=== PATIENT | male | born 1960 | race Caucasian/White ===

== ENCOUNTER 2017-02-24 05:18 | Day surgery (SDC) | payer OTHER ==
[2017-02-13 09:41] VITALS: BMI 34.0
--- NOTE | 2017-02-13 10:13 | PAT Medication Instructions ---
Service Date Feb 13, 2017. Current Home Medication List Aspirin (Aspirin Ec), 81 MG PO QAM Lisinopril (Zestril), 10 MG PO QAM Medication Instructions For Your Scheduled Surgery - Hold the following medications the morning of surgery: Lisinopril (Zestril), 10 MG PO QAM - Take the following medications the morning of surgery with a sip of water OTHERWISE NOTHING TO EAT OR DRINK AFTER MIDNIGHT: Aspirin (Aspirin Ec), 81 MG, 2 tabs PO QAM If you have any questions please call us at [phone] or [phone] or [phone]
[2017-02-13 10:47] LABS: BASO % 0.4 %; BASO ABS # 0.02 K/uL (0-0.2); COMPLETE YES; HEMATOCRIT 45.5 % (42-52); IG% 0.2 %; LYMPH % 35.1 %; LYMPH ABS # 1.76 K/uL (1.2-3.4); MEAN CELL VOLUME 95.4 fL (80-100); MEAN CORPUSCULAR HEMOGLOBIN 33.3 pg (25-34); MEAN CORPUSCULAR HGB CONC 34.9 g/dl (32-36); MEAN PLATELET VOLUME 9.4 fL (7.4-10.4); MONO % 7.8 %; NEUT % 55.5 %; PLATELET COUNT 288 K/uL (130-400); RED BLOOD COUNT 4.77 M/uL (4.7-6.1); WHITE BLOOD COUNT 5.02 K/uL (4.8-10.8)
--- NOTE | 2017-02-13 10:52 | DIAGNOSTIC IMAGING REPORT ---
CHEST PREADMISSION(PA/LAT) CLINICAL HISTORY: PAT preoperative evaluation COMPARISON STUDY: 07/05/2013 FINDINGS: The bones soft tissues and hemidiaphragms are normal. The cardiomediastinal silhouette is normal. The lungs are clear. The pulmonary vasculature is normal. Bilateral stimulator electrodes overlying the low thoracic region IMPRESSION: No acute process Electronically signed by: Frederic Jamison M.D. 02/13/2017 10:50 AM Dictated Date/Time: 02/13/2017 10:49 AM
[2017-02-13 10:56] LABS: URINE APPEARANCE CLEAR (CLEAR); URINE BILIRUBIN NEG (NEG); URINE COLOR YELLOW; URINE EPITHELIAL CELL AUTO 0-5 /lpf (0-5); URINE NITRITE NEG (NEG); URINE PH 5.5 (4.5-7.5); URINE SPECIFIC GRAVITY 1.015 (1.000-1.030); UROBILINOGEN NEG (NEG)
[2017-02-13 11:01] LABS: MANUAL MICROSCOPIC REQUIRED? NO; REVIEW REQ? NO
[2017-02-13 12:35] LABS: BUN/CREATININE RATIO 11.7 (10-20); CALCIUM 9.3 mg/dl (8.5-10.1); CREATININE 1.1 mg/dl (0.60-1.40); POTASSIUM 4.4 mmol/L (3.5-5.1)
[~2017-02-24] VITALS: Ht 185.4 cm; Wt 118.7 kg
[~2017-02-24 05:18] MED LIST: ASPI81TA28 PO; CEFAZOLIN 2000 MG/60 ML D5W IV SCH; LISI-461 PO
[2017-02-24 05:48] VITALS: BP 150/87; PULSE 73; TEMP 36.8; O2SAT 97; Ht 185.4 cm; Wt 118.7 kg
[2017-02-24] MEDS ORDERED: LACTATED RINGER'S 1000ML 1,000 ML IV SCH (06:00)
[2017-02-24] MEDS ORDERED: ROCURONIUM BROMIDE 10 MG/ML 5 ML VIAL ONE (06:31)
[2017-02-24] MEDS ORDERED: PROPOFOL IV EMULSION 10 MG/ML 20 ML VIAL IV ONE (06:31)
[2017-02-24] MEDS ORDERED: DEXAMETHASONE SOD INJ 4 MG/ML VIAL ONE (06:31)
[2017-02-24] MEDS ORDERED: LIDOCAINE HCL 2% 2 ML VIAL (20MG/ML) ONE (06:31)
[2017-02-24] MEDS ORDERED: ONDANSETRON INJ 2 MG/ML 2 ML VIAL ONE (06:31)
[2017-02-24] MEDS ORDERED: FENTANYL CITRATE INJ 50 MCG/1 ML 2 ML VIAL ONE (06:32)
[2017-02-24] MEDS ORDERED: MIDAZOLAM HCL 1 MG/ML 2ML VIAL ONE (06:32)
[2017-02-24] MEDS ORDERED: BUPIVACAINE/EPINEPHRINE 0.5% MPF 1:200,000 30 ML VIAL ONE (07:11)
[2017-02-24] MEDS ORDERED: BACITRACIN 50000 UNIT VIAL ONE (07:11)
--- NOTE | 2017-02-24 07:20 | History & Physical Bridge Note ---
H&P Re-Evaluation Bridge Note: I have examined the patient, reviewed the History & Physical and in the interval since the performance of the History & Physical I have noted the following changes of clinical significance: No changes noted
--- NOTE | 2017-02-24 07:27 | History and Physical ---
History & Physical Date February 24, 2017. Chief Complaint chronic back pain History of Present Illness The patient is a 56 year old male with complaints of Additional History Hepatic Disease: No Endocrine Disorder: No Kidney Disease: No Hypertension: No Heart Disease: No Bleeding Tendencies: No Infectious Diseases: No Allergies Coded Allergies: Fentanyl (Verified Adverse Reaction, Unknown, N&V, 02/13/17) Home Medications Scheduled Aspirin (Aspirin Ec), 2 TAB PO QAM Lisinopril (Zestril), 10 MG PO QAM Physical Examination Skin: warm/dry, no rash Eyes: normal inspection, EOMI, sclerae normal ENT: normal ENT inspection, pharynx normal Head: normocephalic, atraumatic Neck: supple, no adenopathy, trachea midline Respiratory/Chest: lungs clear, normal breath sounds, no respiratory distress Cardiovascular: regular rate, rhythm, no edema, no murmur Abdomen / GI: normal bowel sounds, non tender Back: normal inspection Extremities: normal inspection, normal range of motion Neurologic/Psych: no motor/sensory deficits, alert, normal reflexes, oriented x 3 Diagnosis failed lami syndrome Plan of Treatment spinal stim battery replacement
[2017-02-24] MEDS ORDERED: NEOSTIGMINE METHYLSULFATE 1 MG/ML 10ML VIAL ONE (08:00)
[2017-02-24] MEDS ORDERED: GLYCOPYRROLATE INJ 0.2 MG/ML VIAL ONE (08:00)
[2017-02-24] MEDS ORDERED: OXYC-57 PO (08:12)
--- NOTE | 2017-02-24 08:13 | Discharge Instructions ---
Discharge Instructions Date of Service February 24, 2017. Admission Reason for Admission: Post Laminectomy Syndrome Discharge Discharge Diagnosis / Problem: back pain Discharge Goals Goal(s): Improve function Activity Recommendations Activity Limitations: per Instructions/Follow-up section Lifting Limitations: no more than 10 pounds Exercise/Sports Limitations: until after follow-up appointment May Resume Sexual Activity: after follow-up appointment Shower/Bathe: may shower/bathe in 3 days Driving or Machine Use: resume 1 day after discharge . Current Hospital Diet Patient's current hospital diet: Discharge Diet Recommended Diet: Regular Diet Pending Studies Studies pending at discharge: no Medical Emergencies . Who to Call and When: Medical Emergencies: If at any time you feel your situation is an emergency, please call 911 immediately. . Non-Emergent Contact Non-Emergency issues call your: Primary Care Provider . "Provider Documentation" section prepared by Yemi Ferrer. . VTE Core Measure Inpt VTE Proph given/why not?: Amber Amaro, [facility]
[2017-02-24] MEDS ORDERED: ACETAMINOPHEN 325 MG TAB PO PRN (08:15)
[2017-02-24] MEDS ORDERED: HYDROmorphone INJ 2 MG/ML SYR/VIAL IV PRN (08:15)
[2017-02-24] MEDS ORDERED: KETOROLAC TROMETHAMINE 30 MG/ML VIAL IV. PRN (08:15)
[2017-02-24] MEDS ORDERED: ACETAMINOPHEN 650 MG SUPP PR PRN (08:15)
[2017-02-24] MEDS ORDERED: OXYCODONE HCL IR 5 MG TAB (IMMEDIATE RELEASE) PO PRN (08:15)
[2017-02-24] MEDS ORDERED: ATROPINE SULFATE 0.1 MG/ML 5ML SYR IV PRN (08:45)
[2017-02-24] MEDS ORDERED: EpHEDrine SULFATE INJ 50 MG/ML AMP IV PRN (08:45)
[2017-02-24] MEDS ORDERED: FENTANYL CITRATE INJ 50 MCG/1 ML 2 ML VIAL IV PRN (08:45)
[2017-02-24] MEDS ORDERED: ONDANSETRON INJ 2 MG/ML 2 ML VIAL IV PRN (08:45)
--- NOTE | 2017-02-24 09:07 | Anesthesiology Progress Note ---
Anesthesia Post Op Note Date & Time February 24, 2017 at 09:06 Vital Signs Pain Intensity: 0 Vital Signs Past 12 Hours Date Time Temp Pulse Resp B/P Pulse Ox O2 Delivery O2 Flow Rate FiO2 02/24/17 09:00 36.4 64 14 130/87 94 Room Air 02/24/17 08:50 67 16 123/84 95 Room Air 02/24/17 08:40 69 16 133/82 99 Mask 5 02/24/17 08:30 75 16 124/72 99 Mask 10 02/24/17 08:23 36.2 81 16 132/84 97 Mask 10 02/24/17 05:48 36.8 73 18 150/87 97 Room Air Notes Mental Status: alert / awake / arousable, participated in evaluation Pt Amnestic to Procedure: Yes Nausea / Vomiting: adequately controlled Pain: adequately controlled Airway Patency, RR, SpO2: stable & adequate BP & HR: stable & adequate Hydration State: stable & adequate Anesthetic Complications: no major complications apparent
[2017-02-24 09:15] VITALS: BP 127/82; PULSE 62; TEMP 36.4; O2SAT 92
[2017-02-24 09:40] VITALS: BP 130/80; PULSE 60; O2SAT 93
[2017-02-24 10:05] VITALS: BP 134/83; PULSE 62; TEMP 36.4; O2SAT 93
--- NOTE | 2017-02-24 13:47 | OPERATIVE REPORT ---
DATE OF OPERATION: 02/24/2017 PREOPERATIVE DIAGNOSIS: Post-laminectomy syndrome. POSTOPERATIVE DIAGNOSIS: Same. PROCEDURE PERFORMED: Battery exchange for the spinal cord stimulator. SURGEON: Dr. Yemi Ferrer. COMPUTERIZED MACHINE FABRIC CUTTER: Due to the complex nature of the procedure, the entire surgery was performed with the regional administrative assistant of HEMANTH Hough. The pharmacy innovation assistant, under direct supervision, was involved in the actual performance of all aspects of the surgical procedure including hemostasis, tissue retraction and incision, instrument management, patient positioning, and wound closure. ANESTHESIA: General. DISPOSITION: The patient awakened and taken to PACU in stable condition. HISTORY OF PATIENT'S PROBLEMS: A 56-year-old male well known to me that presents with a very successful spinal cord stimulator implant; however, the battery is no longer functional and we elected to undergo replacement. The risks, benefits, pros, cons, and alternatives were outlined in detail preoperatively. DESCRIPTION OF PROCEDURE: The patient was met preoperatively and the case discussed and all questions were addressed. At that point the patient was taken back to operative suite and after undergoing successful general endotracheal intubation via department of anesthesia was placed in prone position on Los table atop Santiago frame. All bony prominences were well padded and the eyes were inspected to ensure there was no external pressure placed upon them. At this point, the right lumbar flank was prepped and draped in normal sterile fashion. We identified the previous incision site over the battery site. Sharp dissection was then performed down to and exposing the battery. This was removed from the pocket, detached from the leads and a new battery reattached, tested and determined to be functional and then the new battery replaced within the existing pocket and incision closed with subcutaneous Vicryl and 4-0 Monocryl for final skin closure. Steri-Strips and sterile dressing placed. The patient was awakened and taken to PACU in stable condition. I attest to the content of the Intraoperative Record and any orders documented therein. Any exceptio ns are noted below.
== END 2017-02-24 10:10 | disposition home or self-care (01) ==
LOC: C.ACU 05:18
PROVIDERS: ATTEND Orthopaedic Surgery Orthopaedic Surgery of the Spine
DX: M96.1 Postlaminectomy syndrome, not elsewhere classified (principal); Z79.82 Long term (current) use of aspirin; G89.4 Chronic pain syndrome